=== PATIENT | female | born 1985 | race Two or more races ===

== ENCOUNTER 2016-10-17 14:36 | Emergency (ER) | payer MEDICAID ==
[~2016-10-17] VITALS: Ht 157.5 cm; Wt 90.7 kg
[~2016-10-17 14:36] MED LIST: PRENCAP15
[2016-10-17 15:54] VITALS: BP 109/72
== END 2016-10-17 16:29 | disposition home or self-care (01) ==
LOC: ER 14:36
DX: N63 Unspecified lump in breast (principal); F17.210 Nicotine dependence, cigarettes, uncomplicated